=== PATIENT | female | born 1945 | race Caucasian/White ===

== ENCOUNTER 2021-05-03 15:13 | Observation (INO) | payer MEDICARE, SELFPAY ==
--- NOTE | ~2021-05-03 | CT_ITS ---
EXAMINATION:CT diagnostic chest wo con DATE: 05/03/2021 17:23 INDICATION: Shortness of breath and cough. TECHNIQUE: Computed tomography (CT) of the chest was performed without intravenous contrast. Automate d exposure control and iterative reconstruction technique were employed. The dose-length product (DLP ) was 387.33 mGy-cm. COMPARISON: None. FINDINGS: There are patchy groundglass opacities in all lobes with a peripheral predominance. There a re nodules in the lower lobes. There is a mass in right lower lobe with air bronchograms. There are s ubpleural bands in right lower lobe. No pleural effusion. The heart size is normal. There are coronar y artery calcifications. No pericardial effusion. There is a small sliding hiatal hernia. There are g allstones in the gallbladder, which is normal in size. There is severe cervical and thoracic spondylo sis. There is mild chronic anterior wedging of multiple thoracic vertebral bodies. There are changes of posterior fusion procedure in lumbar spine. IMPRESSION: 1. Multifocal lung disease, consistent with pneumonia. Noncontrast low-dose chest CT is recommended i n one month to exclude malignancy. 2. Small sliding hiatal hernia. Reviewed, dictated and finalized at location A. IMPRESSION: 1. Multifocal lung disease, consistent with pneumonia. Noncontrast low-dose lashaun st CT is recommended in one month to exclude malignancy. 2. Small sliding hiatal hernia.
[2021-05-03 15:20] VITALS: BP 135/71; PULSE 98; RESP 24; TEMP 37.6; O2SAT 93
--- NOTE | 2021-05-03 15:49 | ECG_ITS ---
Measurements Intervals [place] Rate: 82 P: 3 MA: 211 QRS: -50 QRSD: 85 T: -17 QT: 358 QTc: 420 Interpretive Statements SINUS RHYTHM WITH FIRST DEGREE AV BLOCK INCOMPLETE RIGHT BUNDLE BRANCH BLOCK LOW QRS VOLTAGE IN PRECORDIAL LEADS CANNOT RULE OUT SEPTAL INFARCT, AGE INDETERMINATE INFERIOR INFARCT, AGE INDETERMINATE BASELINE ARTIFACT- II, III, AVR, AVL, AVF, V1-V6 ABNORMAL ECG Electronically Signed On 05-04-2021 9:51:22 CDT by Kirill Galvan D.O.
[2021-05-03] MEDS: guaiFENesin/DEXTROMETHORPHAN 5 ML UDC 10 ML PO (16:17)
[2021-05-03 16:24] LABS: Base Excess ABG 0.8 mmol/L (0-2); HCO3 ABG 23.8 mmol/L (23-29); Oxygen Content ABG 17.7 %vol (16.0-22.0); Oxyhemoglobin 91.7 % (94-100); PCO2 ABG 33.5 mmHg (35-45); Total Hemoglobin 13.7 g/dL (12.0-18.0); pH ABG 7.47 (7.35-7.45)
[2021-05-03 16:27] LABS: Basophils Absolute Auto 0.02 K/mm3 (0.00-0.10); Basophils Percent Auto 0.2 % (0.0-1.0); Eosinophils Absolute Auto 0.11 K/mm3 (0.02-0.50); Eosinophils Percent Auto 1.1 % (1.0-6.0); Hematocrit 40.4 % (35.0-42.0); Hemoglobin 13.3 g/dL (11.7-13.8); Immature Granulocyte Absolute 0.05 K/mm3 (0.00-0.00); Immature Granulocyte Percent A 0.5 % (0.0-0.0); Lymphocytes Absolute Auto 2.38 K/mm3 (1.10-4.50); Lymphocytes Percent Auto 22.9 % (18.0-42.0); Mean Corpuscular HGB Conc 32.9 g/dL (32.0-36.0); Mean Corpuscular Hemoglobin 31.3 pg (27.0-31.0); Mean Corpuscular Volume 95.1 fL (78.0-102.0); Mean Platelet Volume 10.2 fl (9.2-11.8); Monocytes Absolute Auto 0.56 K/mm3 (0.10-0.90); Monocytes Percent Auto 5.4 % (2.0-11.0); Neutrophils Absolute Auto 7.3 K/mm3 (1.7-7.2); Neutrophils Percent Auto 69.9 % (50.0-70.0); Platelet Count Result 194 K/mm3 (150-420); Red Blood Count 4.25 M/mm3 (4.20-5.40); Red Cell Distribution Width 13.4 % (11.6-14.4); White Blood Count 10.4 K/mm3 (4.8-10.8)
[2021-05-03 16:28] LABS: Device ROOM AIR; Modified Allen's Test Pass; Site Drawn RIGHT RADIAL
[2021-05-03] MEDS: ALBUTEROL SULFATE (*SP) INHALER 2 PUFF INHALATION ×2 (16:29→21:06)
[2021-05-03] MEDS: methylPREDNISolone SOD SUCC 125 MG VIAL IV PUSH ×2 (16:35→21:07)
[2021-05-03 17:05] LABS: SARS-CoV-2 Ag Negative (Negative)
[2021-05-03 17:14] LABS: Alanine Aminotransferase 27 U/L (14-59); Albumin Level 3.7 g/dL (3.4-5.0); Alkaline Phosphatase 70 U/L (46-116); Anion Gap 11 mmol/L (8-16); Aspartate Amino Transferase 25 U/L (15-37); Bilirubin,Total 1.1 mg/dL (0.00-1.00); Blood Urea Nitrogen 14 mg/dL (7-18); Calcium 8.7 mg/dL (8.5-10.1); Carbon Dioxide 26 mmol/L (21-32); Chloride 106 mmol/L (98-108); Estimated CRCL calculation 58 ml/min; Estimated Glomerular Filt Rate > 60; Glucose 90 mg/dL (70-99); Osmolality Calculated 296 mOsm/kg (285-295); Potassium 3.4 mmol/L (3.5-5.1); Sodium 143 mmol/L (136-145); Total Protein 7.7 g/dL (6.4-8.2); Troponin I < 4.0 ng/L (0.00-60.4)
[2021-05-03 17:16] LABS: Lactic Acid Reflex 0.8 mmol/L (0.4-2.0)
[2021-05-03 17:37] LABS: Add Urine Microscopic? NO; Appearance Urine Clear (Clear); Bilirubin Urine Negative (Negative); Blood Urine Negative (Negative); Color Urine Yellow (Yellow); Glucose Urine UA Negative (Negative); Ketones Urine Negative (Negative); Leukocyte Esterase Ur Negative LEU/UL (Negative); Nitrate Urine Negative (Negative); Protein Urine Negative (Negative)
[2021-05-03] MEDS: guaiFENesin 12 HR 600 MG TABCR PO (17:50)
[2021-05-03] MEDS: AZITHROMYCIN 250 MG TABLET 500 MG PO (18:33)
[2021-05-03 18:50] VITALS: BP 142/66; PULSE 82; RESP 20; TEMP 36.2; O2SAT 93
[2021-05-03 19:25] VITALS: PULSE 73; RESP 18; O2SAT 95
--- NOTE | 2021-05-03 19:40 | ED.URI ---
HPI - URI/Sore Throat General Chief Complaint: Upper Respiratory Infection Stated Complaint: bronchitis symptoms Time Seen by Provider: 05/03/21 15:22 Source: patient, family and RN notes reviewed Mode of arrival: ambulatory Limitations: no limitations History of Present Illness MD elicited complaint: cough Onset (ago): week(s) (10) Consistency: constant Severity: mild Pain scale (0-10): 0 Able to tolerate fluids by mouth: Yes Exacerbating factors: nothing Relieving factors: nothing Associated symptoms: shortness of breath Treatments prior to arrival: none Related Data Home Medications Medication Instructions Recorded Confirmed alendronate 70 mg PO WEEKLY 05/03/21 05/03/21 apixaban [Eliquis] 205 mg PO BID 05/03/21 05/03/21 calcium carbonate 200 mg PO DAILY 05/03/21 05/03/21 cholecalciferol (vitamin D3) 25 mcg PO DAILY 05/03/21 05/03/21 [Vitamin D3] citalopram 20 mg PO DAILY 05/03/21 05/03/21 famotidine 20 mg PO DAILY 05/03/21 05/03/21 fenofibrate 160 mg PO DAILY 05/03/21 05/03/21 loratadine 10 mg PO DAILY 05/03/21 05/03/21 montelukast 10 mg PO BID 05/03/21 05/03/21 ropinirole 0.5 mg PO QID 05/03/21 05/03/21 tramadol 50 mg PO PRN PRN 05/03/21 05/03/21 Allergies Allergy/AdvReac Type Severity Reaction Status Date / Time phenol [From Chloraseptic] Allergy Unknown Verified 05/03/21 15:59 sulfamethoxazole Allergy Unknown Verified 05/03/21 15:59 [From Bactrim] trimethoprim [From Bactrim] Allergy Unknown Verified 05/03/21 15:59 Review of Systems Review of Systems: All systems reviewed & are unremarkable except as noted in HPI and below Constitutional: Constitutional: Reports as per HPI and Reports no additional constitutional complaints Eyes: Eyes: Reports as per HPI and Reports no additional eye complaints ENT: Reports system reviewed and no additional complaints, except as documented and Reports as per HPI Cardiovascular: Cardiovascular: Reports as per HPI and Reports no additional cardiovascular complaints Respiratory: Respiratory: Reports as per HPI, Reports no additional respiratory complaints and Reports cough Gastrointestinal: Gastrointestinal: Reports as per HPI and Reports no additional gastrointestinal complaints Genitourinary: Genitourinary: Reports no additional female genitourinary complaints and Reports as per HPI Musculoskeletal: Musculoskeletal: Reports no additional musculoskeletal complaints and Reports as per HPI Integumentary/Breasts: Skin/Breast: Reports system reviewed and no additional complaints, except as docu and Reports as per HPI Neurologic: Reports system reviewed and no additional complaints, except as documented and Reports as per HPI Psychiatric: Psychiatric: Reports no additional psychiatric complaints and Reports as per HPI Endocrine: Endocrine: Reports no additional endocrine complaints and Reports as per HPI Hematologic/Lymphatic: Hematologic/Lymphatic: Reports no additional hematologic/lymphatic complaints and Reports as per HPI Allergic/Immunologic: Allergic/Immunologic: Reports no additional allergic/immunologic complaints and Reports as per HPI [facility] Past Medical History Medical History Pneumonia Surgical History Surgical History DVT (deep venous thrombosis) Exam Const: General: no acute distress and alert Nutritional Appearance: well nourished Orientation/consciousness: patient oriented x3 HENMT: Head: normal to inspection Ears: external ears normal and TM's normal bilaterally General nose exam: Normal external nose present and Normal nares present Mouth: Yes lip normal and Yes moist mucous membranes Teeth and gingiva: dentition normal Eyes: Conjunctivae: conjunctivae normal Pupils: Equal, round and reactive pupils present EOM: EOMs intact bilaterally Neck: Neck: normal visual inspection Chest: Chest palpation & inspection: christine
[2021-05-03 20:00] VITALS: PULSE 96
[2021-05-03 20:01] VITALS: BMI 38.7
--- NOTE | 2021-05-03 20:24 | ADMGEN ---
This patient, Cesia Young, was admitted to 2nd Floor Room 202-1. Patient/family oriented to hospital policies and general routines including ID bracelet, bed and alarms, visiting hours, pain management, procedures, bathroom and other care routines, personal items, smoking policy, room service/diet, and visiting hours. Information on how to activate the Rapid Response Team has been discussed. Patient/Family are encouraged to report perceived risks to care and to ask questions if they do not understand what they are told or what they should do.
[2021-05-03] MEDS: rOPINIRole HCL 0.5 MG TABLET PO (21:06)
[2021-05-03 21:21] VITALS: BP 124/61; PULSE 73; RESP 18; TEMP 36.3; O2SAT 95
[2021-05-03 21:25] LABS: Basophils Absolute Auto 0.03 K/mm3 (0.00-0.10); Basophils Percent Auto 0.3 % (0.0-1.0); Hematocrit 41.5 % (35.0-42.0); Hemoglobin 13.5 g/dL (11.7-13.8); Immature Granulocyte Absolute 0.13 K/mm3 (0.00-0.00); Immature Granulocyte Percent A 1.2 % (0.0-0.0); Lymphocytes Absolute Auto 1.27 K/mm3 (1.10-4.50); Lymphocytes Percent Auto 11.9 % (18.0-42.0); Mean Corpuscular HGB Conc 32.5 g/dL (32.0-36.0); Mean Corpuscular Hemoglobin 30.9 pg (27.0-31.0); Mean Platelet Volume 10.4 fl (9.2-11.8); Monocytes Absolute Auto 0.11 K/mm3 (0.10-0.90); Neutrophils Absolute Auto 9.2 K/mm3 (1.7-7.2); Neutrophils Percent Auto 85.6 % (50.0-70.0); Platelet Count Result 207 K/mm3 (150-420); Red Blood Count 4.37 M/mm3 (4.20-5.40); Red Cell Distribution Width 13.2 % (11.6-14.4); White Blood Count 10.7 K/mm3 (4.8-10.8)
[2021-05-03 21:37] LABS: Alanine Aminotransferase 29 U/L (14-59); Albumin Level 3.7 g/dL (3.4-5.0); Alkaline Phosphatase 72 U/L (46-116); Anion Gap 15 mmol/L (8-16); Aspartate Amino Transferase 26 U/L (15-37); Bilirubin,Total 1.1 mg/dL (0.00-1.00); Blood Urea Nitrogen 15 mg/dL (7-18); Calcium 8.5 mg/dL (8.5-10.1); Carbon Dioxide 23 mmol/L (21-32); Chloride 103 mmol/L (98-108); Estimated CRCL calculation 54 ml/min; Estimated Glomerular Filt Rate > 60; Glucose 189 mg/dL (70-99); Osmolality Calculated 297 mOsm/kg (285-295); Potassium 3.7 mmol/L (3.5-5.1); Sodium 141 mmol/L (136-145)
[2021-05-04] VITALS: BP 112/50; PULSE 71; RESP 18; TEMP 36.4; O2SAT 93
--- NOTE | 2021-05-04 00:07 | PC.NURSE ---
Patient alert and oriented x4. Independent in room. Had dry, barking cough. BL breath sounds diminished. reports cough present x10 weeks with several courses of oral abts from primary doctor. pain rated at 0. 93% on room air.
[2021-05-04 04:00] VITALS: PULSE 96
--- NOTE | 2021-05-04 04:14 | PC.NURSE ---
Patient had episode of tachycardia with afib during coughing spell. Continues to have dry. hacking cough. Reports she has an appointment with Dr. Benitez Cookee in [place] at the end of the month. She has been experiencing periods of SOB prior to bronchitis 10 weeks ago
[2021-05-04] MEDS: ALBUTEROL SULFATE (*SP) INHALER 2 PUFF INHALATION ×2 (05:47→09:29)
[2021-05-04] MEDS: methylPREDNISolone SOD SUCC 125 MG VIAL IV PUSH (05:47)
[2021-05-04 08:00] VITALS: BP 123/71; PULSE 80; PULSE 88; RESP 22; TEMP 35.8; O2SAT 95
[2021-05-04] MEDS: FENOFIBRATE NANOCRYSTALLIZED 145 MG TABLET PO (09:28)
[2021-05-04] MEDS: rOPINIRole HCL 0.5 MG TABLET PO (09:30)
[2021-05-04] MEDS: guaiFENesin 12 HR 600 MG TABCR PO (09:30)
[2021-05-04] MEDS: CALCIUM CARBONATE (TUMS) 500 MG (200 MG ELEMENTAL) PO (09:31)
[2021-05-04] MEDS: APIXABAN 2.5 MG TABLET PO (09:31)
[2021-05-04] MEDS: FAMOTIDINE 20 MG TABLET PO (09:31)
[2021-05-04 12:00] VITALS: PULSE 86
--- NOTE | 2021-05-04 12:35 | PM.SD2 ---
Same Day Admit/Disch: HPI History of Present Illness Chief complaint: bronchitis symptoms Narrative: Cesia Young is a 76 year old femaleWho was admitted under observation for bronchitis symptoms. Patient says that she has had a cough for the past 10 (ten) weeks. Over the last 10 weeks she has been treated for her cough with Augmentin on 2 occasions with prednisone doxycycline and Bactrim and lastly she was put on singular. At some point after those treatments she ended up with a UTI. A friend of hers told her that her voice was getting lower in tone and that she looked sick prompting her to come to the ER. Yesterday she started to gag and states this is what it felt like when she had GERD. This morning she does not complain of any shortness of breath no coughing no fevers no chills no nausea no vomiting. PMHx includes: restless leg syndrome, bronchitis, DVT, Seasonal allergies, Anxiety, Depression, arthritis, osteoporosis, and possibly childhood asthma. Pt stated she does not have asthma but once as a child she was treated for an asthma attack. Denies: fever, chills, nausea, vomiting, abdominal pain, urinary symptoms, changes in bowel habits, recent pain or loss of weight, no changes in medications or other doses. [facility] Past Medical History Medical History (Updated 05/04/21 @ 14:05 by ASIM Bravo) Anxiety Arthritis Asthma Bronchitis Depression Osteoporosis Restless leg syndrome Seasonal allergies Surgical History Surgical History (Updated 05/04/21 @ 13:23 by ASIM Bravo) DVT (deep venous thrombosis) History of appendectomy History of lumbar fusion Family History Family History (Updated 05/04/21 @ 13:24 by ASIM Bravo) Other Family history non-contributory Social History Social History Smoking status: Never smoker Second hand tobacco smoke exposure: Yes Alcohol intake: never Substance use: never Substance use type: does not use Gender identity (if verbalized by the patient): Female Spiritual care concerns: No Same Day Admit/Disch: Med Pre-admit Medications Home Medications Medication Instructions Recorded Confirmed Type alendronate 70 mg PO WEEKLY 05/03/21 05/03/21 History apixaban [Eliquis] 205 mg PO BID 05/03/21 05/03/21 History calcium carbonate 200 mg PO DAILY 05/03/21 05/03/21 History cholecalciferol (vitamin D3) 25 mcg PO DAILY 05/03/21 05/03/21 History [Vitamin D3] citalopram 20 mg PO DAILY 05/03/21 05/03/21 History famotidine 20 mg PO DAILY 05/03/21 05/03/21 History fenofibrate 160 mg PO DAILY 05/03/21 05/03/21 History loratadine 10 mg PO DAILY 05/03/21 05/03/21 History montelukast 10 mg PO BID 05/03/21 05/03/21 History ropinirole 0.5 mg PO QID 05/03/21 05/03/21 History tramadol 50 mg PO PRN PRN 05/03/21 05/03/21 History albuterol sulfate 1 inh INHALATION QID PRN #6.7 g 05/04/21 Rx cefdinir 300 mg PO Q12H #7 cap 05/04/21 Rx methylprednisolone [Medrol ([place])] See Rx Instructions .ROUTE 05/04/21 Rx .COMPLEX #21 ea Exam Const: General: cooperative, comfortable, no acute distress, alert, awake and Physically active Nutritional Appearance: obese morbidly obese HENMT: Head: normal to inspection, normocephalic and atraumatic Ears: hearing grossly normal bilaterally Neck: Neck: normal visual inspection and no JVD Resp: Effort & Inspection: normal respiratory effort Auscultation: clear to auscultation bilaterally Cardio: Rate: regular rate Heart sounds: S1 normal heart sound present and S2 normal heart sound present GI: GI Palp: Yes Soft to palpation and No Tenderness to palpation present (GI) Auscultation: normal bowel sounds Skin: General skin exam: normal color and dry skin Neuro: General: oriented to person, oriented to place and oriented to time Cranial nerves: Yes CN's II-XII intact bilaterally (grossly intact) Cognition (Neuro): normal cognition Speech: normal speech Mot
--- NOTE | 2021-05-04 14:35 | PC.NURSE ---
Discharge to home via wheel chair, discharge instructions reviewed, no questions, new meds to yoana moran, personal items returned to patient
== END 2021-05-04 14:35 | disposition home or self-care (01) ==
LOC: CHSED 15:26 → CHS2ND 19:54
PROVIDERS: Admitting Provider Emergency Medicine; Emergency Provider Emergency Medicine; PCP Family Medicine; Visit Provider Emergency Medicine
DX: J40 Bronchitis, not specified as acute or chronic (principal); K21.9 Gastro-esophageal reflux disease without esophagitis; M81.0 Age-related osteoporosis without current pathological fracture; M19.90 Unspecified osteoarthritis, unspecified site; F32.9 Major depressive disorder, single episode, unspecified; G25.81 Restless legs syndrome; F41.9 Anxiety disorder, unspecified; Z20.822 Contact with and (suspected) exposure to COVID-19; Z79.01 Long term (current) use of anticoagulants; Z86.718 Personal history of other venous thrombosis and embolism; Z98.1 Arthrodesis status
CPT/HCPCS: 36415; 36600; 71250; 80053; 81003; 82805; 83605; 84484; 85025; 87040; 87426; 93005; 96365; 96375; 96376; 99285; A9270; C9803; G0378; J0696; J2930

== ENCOUNTER 2021-07-28 11:15 | Emergency (ER) | payer MEDICARE, SELFPAY ==
--- NOTE | ~2021-07-28 | XR_ITS ---
EXAMINATION: XR knee RT 3V DATE: 07/28/2021 12:02 INDICATION: Right knee pain TECHNIQUE: Three views of the right knee were obtained. COMPARISON: 03/07/2016 FINDINGS: Internal stabilization hardware is present in the proximal tibia. There is no acute fractur e. Moderate tricompartmental osteophyte is noted. There is a moderate-sized knee joint effusion. Soft tissues are unremarkable. IMPRESSION: 1. Moderate size joint effusion and osteoarthritis without acute osseous findings. Reviewed, dictated and finalized at location B. IMPRESSION: 1. Moderate size joint effusion and osteoarthritis without acute osseous findin gs.
[2021-07-28 11:25] VITALS: BP 136/86; PULSE 86; RESP 20; TEMP 36.7; O2SAT 97
--- NOTE | 2021-07-28 11:42 | ED.LOWEXIN ---
HPI - Extremity Injury (Lower) General Chief Complaint: Extremity Injury, Lower Stated Complaint: fell on knee Time Seen by Provider: 07/28/21 11:28 Source: patient Mode of arrival: ambulatory Limitations: no limitations History of Present Illness HPI Narrative: 76-year-old female with a history of RLS, arthritis, bone graft for right tibial fracture was walking down a slope when she lost balance and fell on her right knee. No head injury. The patient presents with right knee pain at a 3 cm superficial laceration of the right knee. No other injuries noted. Injury: Right: knee Type of Injury: laceration ( 3 cm laceration right knee) Place: home Severity: mild Severity scale (1-10): 4 Relieving factors: nothing Exacerbating factors: nothing Context: fall Associated symptoms: ambulatory Other symptoms: none Related Data Home Medications Medication Instructions Recorded Confirmed Eliquis 205 mg PO BID 05/03/21 05/03/21 alendronate 70 mg PO WEEKLY 05/03/21 05/03/21 calcium carbonate 200 mg PO DAILY 05/03/21 05/03/21 cholecalciferol (vitamin D3) 25 mcg PO DAILY 05/03/21 05/03/21 [Vitamin D3] citalopram 20 mg PO DAILY 05/03/21 05/03/21 famotidine 20 mg PO DAILY 05/03/21 05/03/21 fenofibrate 160 mg PO DAILY 05/03/21 05/03/21 loratadine 10 mg PO DAILY 05/03/21 05/03/21 montelukast 10 mg PO BID 05/03/21 05/03/21 ropinirole 0.5 mg PO QID 05/03/21 05/03/21 Allergies Allergy/AdvReac Type Severity Reaction Status Date / Time phenol [From Chloraseptic] Allergy Unknown Verified 05/03/21 15:59 sulfamethoxazole Allergy Unknown Verified 05/03/21 15:59 [From Bactrim] trimethoprim [From Bactrim] Allergy Unknown Verified 05/03/21 15:59 Review of Systems Review of Systems: All systems reviewed & are unremarkable except as noted in HPI and below Musculoskeletal: Musculoskeletal: Reports as per HPI Integumentary/Breasts: Comments: 3 cm laceration of the right knee Psychiatric: Psychiatric: Reports depression PMFSH Past Medical History Medical History (Updated 07/28/21 @ 12:31 by Bakari Cochran MD) Anxiety Arthritis Asthma Bronchitis Depression Factor 5 Leiden mutation, heterozygous Osteoporosis Restless leg syndrome Seasonal allergies Surgical History Surgical History DVT (deep venous thrombosis) History of appendectomy History of lumbar fusion Family History Family History (Updated 05/04/21 @ 13:24 by SAGAR BravoN-C) Other Family history non-contributory Social History Social History Smoking status: Never smoker Second hand tobacco smoke exposure: Yes Alcohol intake: never Substance use: never Substance use type: does not use Gender identity (if verbalized by the patient): Female Spiritual care concerns: No Exam Const: General: no acute distress HENMT: Head: normal to inspection Mouth: Yes lip normal and Yes dry mucous membranes Eyes: General: appearance normal, both eyes and all related structures Conjunctivae: conjunctivae normal Pupils: Equal, round and reactive pupils present EOM: EOMs intact bilaterally Neck: Neck: normal visual inspection Chest: Chest palpation & inspection: normal inspection of the chest Resp: Effort & Inspection: normal respiratory effort Auscultation: clear to auscultation bilaterally Cardio: Rate: regular rate Rhythm: regular rhythm GI: GI Palp: Yes Soft to palpation and Yes Tenderness to palpation present (GI) ( nontender without any guarding or rigidity) : General: Yes no CVA tenderness Skin: Other: 3 cm laceration all over the right knee joint. Laceration involves full thickness skin. Neuro: General: patient oriented x3, moves all extremities and no focal motor deficits Extrem: General: edema bilateral Other: Right knee did not show any swelling. No restriction of movements. Negative stress test
[2021-07-28] MEDS: traMADol HCL (*CRX) 50 MG TABLET PO (12:13)
[2021-07-28] MEDS: TETANUS,DIPHTHERIA,AC PERTUSSIS ADULT 0.5 ML (ADACEL) (12:14)
[2021-07-28 13:03] VITALS: BP 136/86; PULSE 82; RESP 18; TEMP 37.1; O2SAT 97
== END 2021-07-28 13:04 | disposition home or self-care (01) ==
PROVIDERS: Emergency Provider Internal Medicine Critical Care Medicine; PCP Family Medicine
DX: M25.561 Pain in right knee (principal); S81.011A Laceration without foreign body, right knee, initial encounter; W19.XXXA Unspecified fall, initial encounter
CPT/HCPCS: 12001; 73562; 90471; 90715; 99282; 99283; A9270

== ENCOUNTER 2022-12-08 13:51 | Observation (INO) | payer OTHER, SELFPAY ==
--- NOTE | ~2022-12-08 | CT_ITS ---
EXAMINATION: CT brain wo con DATE: 12/08/2022 14:58 INDICATION: Status post fall today with left parietal hematoma. Headache . TECHNIQUE: Computed tomography (CT) of the head was performed without intravenous contrast. The mA wa s adjusted according to patient size. Iterative reconstruction technique was employed. The dose-lengt h product was 605.33 mGy-cm. COMPARISON: 03/08/2016. FINDINGS: No acute intracranial hemorrhage or extra-axial fluid collection. No hydrocephalus, mass, or herniation. No acute ischemic infarct. Unremarkable dural venous sinus attenuation. No acute osseous abnormality. Mild left scalp swelling near the vertex. Small right maxillary sinus fluid level, left maxillary sinus retention cyst or polyp, small volume b ilateral mastoid fluid, the remaining aerated spaces are clear. Mild atrophy and chronic white matter change. Atherosclerotic intracranial calcification. Distal vert ebral artery and basilar artery ectasia. Left lens replacement. IMPRESSION: No acute intracranial process. Small right maxillary fluid level, may represent acute sinusitis or mu cosal hemorrhage in the setting of trauma. Reviewed, dictated and finalized at location K. IMPRESSION: No acute intracranial process. Small right maxillary fluid level, may represent acute sinusitis or mucosal hemorrhage in the setting of trauma.
--- NOTE | ~2022-12-08 | XR_ITS ---
EXAMINATION: XR knee LT 3V DATE: 12/08/2022 15:04 INDICATION: Left knee pain. TECHNIQUE: 3 views of left knee were obtained. COMPARISON: Left knee radiograph 03/07/2016 FINDINGS: Bone alignment is normal. No fracture. There is moderate osteoarthritis of medial and manzo lofemoral compartments and mild osteoarthritis of lateral compartment. There is a small knee joint ef fusion. IMPRESSION: 1. Moderate left knee osteoarthritis. 2. Small left knee joint effusion. Reviewed, dictated and finalized at location A.
--- NOTE | ~2022-12-08 | CT_ITS ---
EXAMINATION: CT cervical spine wo con DATE: 12/08/2022 14:59 INDICATION: Status post fall today; left sided hematoma. TECHNIQUE: Computed tomography (CT) of the cervical spine was performed with intravenous contrast. Au tomated exposure control and iterative reconstruction technique were employed. The dose-length produc t was 396.11 mGy-cm. COMPARISON: None. FINDINGS: Vertebral Body Alignment: Intact. . Craniocervical and atlantoaxial alignment: Severe degenerative change at the atlantoaxial joint and C 1-2. Pannus formation. Large subcortical cysts in the dens. Alignment intact. Osseous structures/fracture: No evidence of a lytic or blastic process in the visualized spine. No e vidence of acute fracture. C4-5 vertebral body and facet fusion. Cervical soft tissues: The paraspinal soft tissues planes are maintained. Small bilateral mastoid eff usions. Degenerative changes: Multilevel severe degenerative disc disease. Multilevel severe facet arthropath y. Multilevel severe neural foraminal narrowing. No severe central canal narrowing. IMPRESSION: No acute fracture or traumatic malalignment in the cervical spine. Reviewed, dictated and finalized at location K.
--- NOTE | ~2022-12-08 | XR_ITS ---
EXAMINATION: XR elbow RT min 3V DATE: 12/08/2022 15:02 INDICATION: Hematoma at the posterior right elbow post fall TECHNIQUE: Anteroposterior, two oblique and lateral views of the right elbow were obtained. COMPARISON: None. FINDINGS: Alignment is normal. No fracture or joint effusion. Joint spaces are normal. Tiny enthesophyte at the tip of the olecranon. Dense soft tissue tissue swelling dorsal to the olecranon consistent with prov ided history of a posttraumatic hematoma. IMPRESSION: 1. Right elbow joint effusion or acute osseous abnormality. Reviewed, dictated and finalized at location B.
--- NOTE | ~2022-12-08 | XR_ITS ---
EXAMINATION: XR pelvis 1-2V DATE: 12/08/2022 15:01 INDICATION: Pelvis injury. Fall. TECHNIQUE: An anteroposterior view of the pelvis was obtained. COMPARISON: None. FINDINGS: Bone alignment is normal. No fracture. There are changes of posterior fusion procedure in l umbosacral spine. There is mild osteoarthritis of the hips. Osteitis pubis is noted. IMPRESSION: 1. Mild osteoarthritis of the hips. Reviewed, dictated and finalized at location A.
[2022-12-08 13:51] VITALS: BP 133/81; BP 133/82; PULSE 80; PULSE 82; RESP 16; TEMP 36.2; O2SAT 96; O2SAT 98
--- NOTE | 2022-12-08 14:26 | ED.FALL ---
HPI - Fall General Chief Complaint: Fall Stated Complaint: fall Time Seen by Provider: 12/08/22 14:15 Source: patient Mode of arrival: EMS Limitations: no limitations History of Present Illness HPI Narrative: 37-year-old female with history of RLS, anxiety /depression status, factor 5 laden deficiency, DVT, osteoporosis fell while she was trying to place a wreath on her door. no loss of consciousness. She presents with -- head injury with a hematoma over the left parietal region. -- Left knee pain with decreased range of motion. -- Right elbow pain with a hematoma. No ENT bleeding. MD complaint: fall Onset (ago): hour(s) ( 1 hour ago.) Fall from: standing Fall witnessed: no Place fall occurred: home Loss of consciousness: none Symptoms prior to fall: none Context: tripped/slipped Location of injury: head and other ( Left knee and right elbow) Location of injury - extremities: Left: knee and Right: elbow Related Data Home Medications Medication Instructions Recorded Confirmed alendronate 70 mg tablet 70 mg PO WEEKLY 05/03/21 12/08/22 apixaban 2.5 mg tablet (Eliquis) 5 mg PO BID 05/03/21 12/08/22 calcium carbonate 200 mg calcium 200 mg PO DAILY 05/03/21 12/08/22 (500 mg) chewable tablet cholecalciferol (vitamin D3) 25 25 mcg PO DAILY 05/03/21 12/08/22 mcg (1,000 unit) tablet (Vitamin D3) citalopram 20 mg tablet 20 mg PO DAILY 05/03/21 12/08/22 famotidine 20 mg tablet 20 mg PO DAILY 05/03/21 12/08/22 fenofibrate 160 mg tablet 160 mg PO DAILY 05/03/21 12/08/22 loratadine 10 mg tablet 10 mg PO DAILY 05/03/21 12/08/22 montelukast 10 mg tablet 10 mg PO BID 05/03/21 12/08/22 ropinirole 0.5 mg tablet 0.5 mg PO QID 05/03/21 12/08/22 Allergies Allergy/AdvReac Type Severity Reaction Status Date / Time phenol [From Chloraseptic] Allergy Unknown Verified 12/08/22 14:02 sulfamethoxazole Allergy Unknown Verified 12/08/22 14:02 [From Bactrim] trimethoprim [From Bactrim] Allergy Unknown Verified 12/08/22 14:02 [facility] Past Medical History Medical History (Updated 12/08/22 @ 17:06 by Bakari Cochran MD) Anxiety Arthritis Asthma Bronchitis Depression Factor 5 Leiden mutation, heterozygous Osteoporosis Restless leg syndrome Seasonal allergies Surgical History Surgical History DVT (deep venous thrombosis) History of appendectomy History of lumbar fusion Family History Family History (Updated 05/04/21 @ 13:24 by Serge Smith [employer]-C) Other Family history non-contributory Social History Social History Smoking status: Never smoker Second hand tobacco smoke exposure: Yes Alcohol intake: never Substance use: never Substance use type: does not use Gender identity (if verbalized by the patient): Female Spiritual care concerns: No Course Course Emergency Course: accidental fall head injury - patient is on Eliquis for factor 5 laden deficiency left knee contusion right elbow contusion Vital Signs Vital signs: Vital Signs Temperature 36.2 C L 12/08/22 13:51 Pulse Rate 80 12/08/22 13:51 Respiratory Rate 16 12/08/22 13:51 Blood Pressure 133/82 12/08/22 13:51 Pulse Oximetry 96 12/08/22 13:51 Oxygen Delivery Room Air 12/08/22 13:51 Temperature 36.2 C L 12/08/22 13:51 Pulse Rate 82 12/08/22 13:51 Respiratory Rate 16 12/08/22 13:51 Blood Pressure 133/81 12/08/22 13:51 Pulse Oximetry 98 12/08/22 13:51 Oxygen Delivery Room Air 12/08/22 13:51 MDM - Fall MDM Narrative Medical decision making narrative: accidental fall head injury with left parietal hematoma left knee sprain right elbow sprain/ hematoma will admit this patient in view of her recurrent fall risk and the fact that she lives by herself. Will request for OT/PT. Differential Diagnosis Differential diagnosis: Likely concussion without loss of
[2022-12-08] MEDS: HYDROmorphone HCL INJ (*CRX) 2 MG/ML VIAL 0.5 MG IM (14:41)
[2022-12-08] MEDS: ONDANSETRON HCL ODT 4 MG TABLET PO (14:41)
--- NOTE | 2022-12-08 16:07 | PC.NURSE ---
ASSISTED PT WITH AMBULATION, PT NORMALLY AMBULATES WITH CANE. +PMS POST ELIZABETH APPLICATION. PT WAS ABLE TO AMBULATE FROM STRETCHER TO CHAIR WITH RN AND CANE, HOWEVER REPORTS EXTREME PAIN. PT HAD SLOW STEADY GAIT. PT LIVES ALONE, REPORTS SHE DOES NOT FEEL SAFE GOING HOME TONIGHT, FEELS IF WHEN THE PAIN MEDICATION WEARS OFF SHE WILL NOT BE ABLE TO GET UP AND AMBULATE ON HER OWN. ERP WAS NOTIFIED.
[2022-12-08 16:34] LABS: Basophils Absolute Auto 0.04 K/mm3 (0.00-0.10); Basophils Percent Auto 0.5 % (0.0-1.0); Eosinophils Absolute Auto 0.33 K/mm3 (0.02-0.50); Eosinophils Percent Auto 3.9 % (1.0-6.0); Hematocrit 43.4 % (35.0-42.0); Hemoglobin 13.6 g/dL (11.7-13.8); Immature Granulocyte Absolute 0.04 K/mm3 (0.00-0.00); Immature Granulocyte Percent A 0.5 % (0.0-0.0); Lymphocytes Absolute Auto 2.43 K/mm3 (1.10-4.50); Lymphocytes Percent Auto 28.8 % (18.0-42.0); Mean Corpuscular HGB Conc 31.3 g/dL (32.0-36.0); Mean Corpuscular Hemoglobin 29.3 pg (27.0-31.0); Mean Corpuscular Volume 93.5 fL (78.0-102.0); Mean Platelet Volume 10.6 fl (9.2-11.8); Monocytes Absolute Auto 0.44 K/mm3 (0.10-0.90); Monocytes Percent Auto 5.2 % (2.0-11.0); Neutrophils Absolute Auto 5.2 K/mm3 (1.7-7.2); Neutrophils Percent Auto 61.1 % (50.0-70.0); Platelet Count Result 209 K/mm3 (150-420); Red Blood Count 4.64 M/mm3 (4.20-5.40); Red Cell Distribution Width 13.3 % (11.6-14.4); White Blood Count 8.4 K/mm3 (4.8-10.8)
[2022-12-08 17:03] LABS: Alanine Aminotransferase 37 U/L (14-59); Albumin Level 3.8 g/dL (3.4-5.0); Alkaline Phosphatase 131 U/L (46-116); Anion Gap 9 mmol/L (8-16); Aspartate Amino Transferase 35 U/L (15-37); Bilirubin,Total 0.6 mg/dL (0.00-1.00); Blood Urea Nitrogen 17 mg/dL (7-18); Calcium 9.2 mg/dL (8.5-10.1); Carbon Dioxide 31 mmol/L (21-32); Chloride 104 mmol/L (98-108); Estimated CRCL calculation 66 ml/min; Estimated Glomerular Filt Rate > 60; Glucose 97 mg/dL (70-99); Osmolality Calculated 299 mOsm/kg (285-295); Potassium 4.1 mmol/L (3.5-5.1); Sodium 144 mmol/L (136-145); Troponin I 4.4 ng/L (0.00-60.4)
[2022-12-08 17:25] VITALS: BP 102/80; PULSE 67; RESP 18; TEMP 36.7; O2SAT 100
[2022-12-08 18:11] VITALS: BP 138/66; PULSE 74; RESP 15; TEMP 36.4; O2SAT 95
--- NOTE | 2022-12-08 18:12 | ADMGEN ---
This patient, Cesia Young, was admitted to 2nd Floor Room 203-2. Patient/family oriented to hospital policies and general routines including ID bracelet, bed and alarms, visiting hours, pain management, procedures, bathroom and other care routines, personal items, smoking policy, room service/diet, and visiting hours. Information on how to activate the Rapid Response Team has been discussed. Patient/Family are encouraged to report perceived risks to care and to ask questions if they do not understand what they are told or what they should do.
[2022-12-08 18:41] VITALS: BMI 36.5
[2022-12-08] MEDS: HYDROcodone/acetaminophen (*CRX) 5-325 MG TABLET 1 TAB PO (19:25)
[2022-12-08] MEDS: APIXABAN 2.5 MG TABLET 5 MG PO (19:25)
[2022-12-08] MEDS: ALBUTEROL SULFATE (*SP) INHALER 1 PUFF INHALATION (19:26)
[2022-12-08] MEDS: rOPINIRole HCL 0.5 MG TABLET PO (20:37)
--- NOTE | 2022-12-08 20:50 | PC.NURSE ---
Patient awake talking on the phone when nurse came in. Alert and oriented x3. Able to verbalize needs and answer questions appropriately. Able to take medication without difficulty. Hematoma observed to top of head. Purple in color. Knee and elbow wrapped. IV clean, dry, intact. SR up x2 and belongings and call banks within reach.
--- NOTE | 2022-12-08 22:11 | PC.NURSE ---
Patient resting quietly. No new c/o offered. Call light within reach.
--- NOTE | 2022-12-08 23:03 | PC.NURSE ---
Pt assisted to BSC c walker at this time, Pt having difficulty moving herself out of bed and difficulty bearing wt. on Lt knee/leg at this time s severe pain. Lt knee is wrapped and assisted pt to commode c toe touch weight bearing. Pt urinated and back to bed c assist. Noted Rt elbow bruising and slight swelling, latesha wrap applied to Rt elbow.
[2022-12-08 23:51] VITALS: BP 123/71; PULSE 86; RESP 20; TEMP 36.6; O2SAT 97
--- NOTE | 2022-12-09 00:24 | PC.NURSE ---
Pt resting in bed, eyes closed, no distress noted, call banks at pt side.
--- NOTE | 2022-12-09 03:04 | PC.NURSE ---
Pt sleeping in position of comfort c knee elevated on pillow. Pt awakens easily to voice, then back to sleep. Call banks at pt side.
[2022-12-09] MEDS: HYDROcodone/acetaminophen (*CRX) 5-325 MG TABLET 1 TAB PO (04:22)
--- NOTE | 2022-12-09 04:37 | PC.NURSE ---
Pt awake and in severe cramping pain c her Lt knee, pt assisted c gait belt and use [place] [facility] [place] able to tolerate slight wt bearing to her leg but requests pain pill. Garber given as per order, pt assisted back to bed and pillow placed under knee for comfort. Call banks at pt side.
[2022-12-09 08:00] VITALS: BP 124/78; PULSE 81; RESP 16; TEMP 36.6; O2SAT 93
--- NOTE | 2022-12-09 08:32 | PM.SD2 ---
Same Day Admit/Disch: HPI History of Present Illness Chief complaint: FALL WEAKNESS Narrative: Cesia Young is a 77 year old female Chief Complaint: Fall Stated Complaint: fall Time Seen by Provider: 12/08/22 14:15 Source: patient Mode of arrival: EMS Limitations: no limitations History of Present Illness HPI Narrative: ?37-year-old female with history of RLS, anxiety /depression status,? factor 5 laden deficiency, DVT, osteoporosis fell while she was trying to place a wreath? on her door.? no loss of consciousness.? She presents with -- head injury with a hematoma over the left parietal region. --? Left knee pain with decreased range of motion. --? Right elbow pain with a hematoma. ? No ENT bleeding. [facility] Past Medical History Medical History Anxiety Arthritis Asthma Bronchitis Depression Factor 5 Leiden mutation, heterozygous Osteoporosis Restless leg syndrome Seasonal allergies Surgical History Surgical History DVT (deep venous thrombosis) History of appendectomy History of lumbar fusion Family History Family History Other Family history non-contributory Social History Social History Smoking status: Never smoker Second hand tobacco smoke exposure: Yes Alcohol intake: former Substance use: never Substance use type: does not use Lack of Transportation: No Lack of Food: Never True Current Housing: I Have Housing Concerned About Future Housing: No Difficulty Paying Gas/Electric Bills: No Difficulty Paying for Meds: No Currently Unemployed: No Education: Associate Degree Difficulty w/ Childcare or Family Care: No Gender identity (if verbalized by the patient): Female Spiritual care concerns: No Same Day Admit/Disch: Med Pre-admit Medications Home Medications Medication Instructions Recorded Confirmed Type alendronate 70 mg tablet 70 mg PO WEEKLY 05/03/21 12/08/22 History apixaban 2.5 mg tablet (Eliquis) 5 mg PO BID 05/03/21 12/08/22 History calcium carbonate 200 mg calcium 200 mg PO DAILY 05/03/21 12/08/22 History (500 mg) chewable tablet cholecalciferol (vitamin D3) 25 25 mcg PO DAILY 05/03/21 12/08/22 History mcg (1,000 unit) tablet (Vitamin D3) citalopram 20 mg tablet 20 mg PO DAILY 05/03/21 12/08/22 History famotidine 20 mg tablet 20 mg PO DAILY 05/03/21 12/08/22 History fenofibrate 160 mg tablet 160 mg PO DAILY 05/03/21 12/08/22 History loratadine 10 mg tablet 10 mg PO DAILY 05/03/21 12/08/22 History montelukast 10 mg tablet 10 mg PO BID 05/03/21 12/08/22 History ropinirole 0.5 mg tablet 0.5 mg PO QID 05/03/21 12/08/22 History albuterol sulfate 90 mcg/actuation 1 inh inhalation QID PRN shortness 05/04/21 12/08/22 Rx aerosol inhaler of breath or wheezing #6.7 grams tramadol 50 mg tablet 50 mg PO Q6H PRN Pain Rated 4-6 12/09/22 Rx #15 tabs Exam Narrative: GENERAL:Well-appearing, well-nourished, and in no acute distress. HEAD:Normocephalic, atraumatic. EYES: PERRLA and EOMI. ENT: Nares clear, no rhinorrhea or epistaxis. Mucous membranes moist. CHEST: Clear to auscultation. No respiratory distress. HEART: Regular rate and rhythm Normal peripheral pulses. ABDOMEN: Soft, nontender, nondistended, normal active bowel sounds. EXTREMITIES: Normal range of motion. 1+ edema. Right arm/elbow bruising noted with a hematoma, left knee swollen w latesha wrap, Head small goose egg noted bruising SKIN: Warm, dry, no rash. NEURO: No focal deficits. Alert and oriented x3. DS: Data Data Completed and Pending Labs on day of discharge: Labs from last 24 hours 12/08/22 12/08/22 16:14 16:14 WBC 8.4 RBC 4.64 Hgb 13.6 Hct 43.4 H MCV 93.5 MCH 29.3 MCHC 31.3 L RDW 13.3 Plt Count 209 MPV 10.6 Immature Gr
[2022-12-09] MEDS: CALCIUM CARBONATE (TUMS) 500 MG (200 MG ELEMENTAL) PO (08:54)
[2022-12-09] MEDS: CHOLECALCIFEROL 1,000 UNITS TABLET 1000 UNITS PO (08:54)
[2022-12-09] MEDS: rOPINIRole HCL 0.5 MG TABLET PO (08:55)
[2022-12-09] MEDS: FAMOTIDINE 20 MG TABLET PO (08:55)
[2022-12-09] MEDS: APIXABAN 2.5 MG TABLET 5 MG PO (08:55)
[2022-12-09] MEDS: FENOFIBRATE NANOCRYSTALLIZED 145 MG TABLET PO (08:55)
[2022-12-09] MEDS: CITALOPRAM HYDROBROMIDE 20 MG TABLET PO (08:55)
[2022-12-09] MEDS: LORATADINE 10 MG TABLET PO (08:56)
[2022-12-09] MEDS: MONTELUKAST SODIUM 10 MG TABLET PO (08:56)
--- NOTE | 2022-12-09 15:23 | PC.NURSE ---
Pt given discharge instructions, medication instruction and fall prevention instruction as well as MD follow up appointment. Pt taken to family car via WC by RN.
--- NOTE | 2022-12-13 11:43 | PC.NURSE ---
Pt states she received and understood her discharge instructions. State my care was excellent .
== END 2022-12-09 11:40 | disposition home health service (06) ==
LOC: CHSED 17:08 → CHS2ND 17:19
PROVIDERS: Admitting Provider Internal Medicine; Emergency Provider Internal Medicine Critical Care Medicine; PCP Internal Medicine; Visit Provider Internal Medicine
DX: S09.90XA Unspecified injury of head, initial encounter (principal); S53.401A Unspecified sprain of right elbow, initial encounter; S83.92XA Sprain of unspecified site of left knee, initial encounter; D68.51 Activated protein C resistance; J45.909 Unspecified asthma, uncomplicated; M81.0 Age-related osteoporosis without current pathological fracture; G25.81 Restless legs syndrome; F41.9 Anxiety disorder, unspecified; W19.XXXA Unspecified fall, initial encounter; Z79.01 Long term (current) use of anticoagulants; Z86.718 Personal history of other venous thrombosis and embolism; Z98.1 Arthrodesis status
CPT/HCPCS: 36415; 70450; 72125; 72170; 73080; 73562; 80053; 84484; 85025; 96372; 97161; 99285; A9270; G0378; J1170

== ENCOUNTER 2023-01-23 10:45 | Emergency (ER) | payer OTHER, SELFPAY ==
--- NOTE | ~2023-01-23 | CT_ITS ---
EXAMINATION: CT pelvis wo con DATE: 01/23/2023 11:32 INDICATION: . Is a left hip and sciatic pain. TECHNIQUE: High resolution computed tomography (CT) of the pelvis was performed without intravenous c ontrast. Additional sagittal and coronal reconstructions were performed. Automated exposure control a nd iterative reconstruction technique were employed. The dose-length product was 841.17 mGy-cm. COMPARISON: Pelvis radiograph dated 12/08/2022 FINDINGS: Lumbar spondylosis with limited posterior spinal fusion in the lower lumbar spine. See separate lumba r spine CT report for further detail. Normal bone alignment in the pelvis. No fracture or suspected a vascular necrosis. Bone island at the left femoral head. Mild bilateral hip osteoarthritis and modera te left and moderate to severe right sacroiliac osteoarthritis. Likely bone graft harvest site at the left posterior iliac spine. Moderate osteitis pubis. Enthesopathic calcification at the bilateral is chial tuberosity origins of the proximal hamstring tendons. No hip joint effusions. The bladder, uter us, bilateral adnexa and visualized portion of the bowels are unremarkable. No free fluid in the pelv is. No pathologically enlarged pelvic or inguinal lymphadenopathy. IMPRESSION: 1. 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 No acute osseous abnormality. Reviewed, dictated and finalized at location A. IMPRESSION: 1. 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 No acute osseous abnormality.
--- NOTE | ~2023-01-23 | CT_ITS ---
EXAMINATION: CT lumbar spine wo con DATE: 01/23/2023 11:31 INDICATION: 3 days of left low back and hip pain. TECHNIQUE: Computed tomography (CT) of the lumbar spine was performed without intravenous contrast. A utomated exposure control and iterative reconstruction technique were employed. The dose-length produ ct was 1075.85 mGy-cm. COMPARISON: None FINDINGS: 5 mm anterolisthesis L3 on L4 and L2-3 millimeters anterolisthesis L4 on L5. L4 and L5 lami nectomies. L3-S1 posterior spinal fusion with bilateral vertical michell and pedicle screw fixations. The re is also anterior fusion across the margins of the severely narrowed L5-S1 disc space. Vertebral padmini dy heights are normal. No acute fracture. Lucent lesion with internal thick and vertical trabecula in volving the majority of the L1 vertebral body consistent with a hemangioma. Severe disc height loss w ith Modic type III degenerative endplate changes at L2-L3. Moderate disc height loss with vacuum phen omena at T10-T11, T11-T12 and L1-L2. Mild disc height loss at T12-L1 and L3-L4. Additional moderate t o severe disc height loss at L4-L5. Cholelithiasis. The following disc levels are specifically discus sed: T11-T12: Disc is mildly bulging. There is severe bilateral facet joint osteoarthritis. There is moder ate right and moderate to severe left neural foraminal stenosis. There is mild central canal stenosis . T12-L1: Disc is bulging. There is moderate left and severe right facet joint osteoarthritis. There is mild bilateral neural foraminal stenosis. There is mild central canal stenosis. L1-L2: Disc is bulging. There is severe bilateral facet joint osteoarthritis. There is moderate bilat eral neural foraminal stenosis. There is moderate central canal stenosis. L2-L3: Small posterior endplate osteophytes. There is severe facet joint osteoarthritis. There is mil d to moderate right and moderate left neural foraminal stenosis. There is moderate to severe central canal stenosis. L3-L4: Disc does not appear to extend beyond the more posterior L4 endplate margin. There is severe b ilateral facet joint osteoarthritis with posterior spinal fusion extending lateral to the facet joint s. There is mild bilateral neural foraminal stenosis. There is no central canal stenosis with L4 lami nectomy and posterior decompression. L4-L5: This does not appear to extend beyond the posterior L5 endplate margin. There is cross the perfecto ateral facet joints. There is left and mild to moderate right neural foraminal stenosis. There is no central canal stenosis with L4 and L5 laminectomies and posterior decompression. L5-S1: Disc space is fused as are the bilateral facet joints. There is at least mild left-sided and m oderate right-sided neural foraminal stenosis however assessment is limited by metallic streak artifa ct from the fixation instrumentation. There is no central canal stenosis with L5 laminectomy and post erior decompression. IMPRESSION: 1. Moderate to severe lumbar and lower thoracic spondylosis. No acute acute osseous abnormality. 2. L4 and L5 laminectomies and instrumented L3-S1 posterior spinal fusion. Reviewed, dictated and finalized at location A. IMPRESSION: 1. Moderate to severe lumbar and lower thoracic spondylosis. No acute acute oss eous abnormality. 2. L4 and L5 laminectomies and instrumented L3-S1 posterior spinal fusion.
[2023-01-23 10:48] VITALS: BP 159/84; PULSE 88; RESP 20; TEMP 36.2; O2SAT 97
--- NOTE | 2023-01-23 10:52 | ED.GENADULT ---
HPI - General Adult General Chief complaint: Extremity Problem,Nontraumatic Stated complaint: left hip pain Time Seen by Provider: 01/23/23 10:51 Source: patient Mode of arrival: ambulatory Limitations: no limitations History of Present Illness HPI narrative: 77-year-old white female complains of left hip pain the past 3 days. She has been getting [facility] therapy for her knee. she complains of left lower back /hip pain worse when she is walking. Helped a little bit with Tylenol but not much. She has been using a cane for over a year. Denies any numbness or weakness. She has had low back surgery in the past. But does not usually need to take anything for back pain. Denies any recent trauma fall injury. Denies any other pain anywhere. Denies any numbness or paresthesias. She rates her pain as a 8/10. Worse with walking and movement. Denies any nausea vomiting Or Diarrhea voiding or stooling, fever sore throat rash or itching bleeding or bruising dizziness or lightheadedness. She has had a little bit of a cold recently with a cough nonproductive. She does have a rash on her back in her face dried scabs that been there for months. Her doctor total put Vaseline on but she can not reach that area on her back. She covers her face rash with makeup. denies any other complaints. Related Data Home Medications Medication Instructions Recorded Confirmed alendronate 70 mg tablet 70 mg PO WEEKLY 05/03/21 01/23/23 apixaban 2.5 mg tablet (Eliquis) 5 mg PO BID 05/03/21 01/23/23 calcium carbonate 200 mg calcium 200 mg PO DAILY 05/03/21 01/23/23 (500 mg) chewable tablet cholecalciferol (vitamin D3) 25 25 mcg PO DAILY 05/03/21 01/23/23 mcg (1,000 unit) tablet (Vitamin D3) citalopram 20 mg tablet 20 mg PO DAILY 05/03/21 01/23/23 famotidine 20 mg tablet 20 mg PO DAILY 05/03/21 01/23/23 fenofibrate 160 mg tablet 160 mg PO DAILY 05/03/21 01/23/23 loratadine 10 mg tablet 10 mg PO DAILY 05/03/21 01/23/23 montelukast 10 mg tablet 10 mg PO BID 05/03/21 01/23/23 ropinirole 0.5 mg tablet 0.5 mg PO QID 05/03/21 01/23/23 Allergies Allergy/AdvReac Type Severity Reaction Status Date / Time phenol [From Chloraseptic] Allergy Unknown Verified 01/23/23 10:57 sulfamethoxazole Allergy Unknown Verified 01/23/23 10:57 [From Bactrim] trimethoprim [From Bactrim] Allergy Unknown Verified 01/23/23 10:57 PMFSH Past Medical History Medical History Anxiety Arthritis Asthma Bronchitis Depression Factor 5 Leiden mutation, heterozygous Osteoporosis Restless leg syndrome Seasonal allergies Surgical History Surgical History DVT (deep venous thrombosis) History of appendectomy History of lumbar fusion Family History Family History Other Family history non-contributory Social History Social History Smoking status: Never smoker Second hand tobacco smoke exposure: Yes Alcohol intake: former Substance use: never Substance use type: does not use Lack of Transportation: No Lack of Food: Never True Current Housing: I Have Housing Concerned About Future Housing: No Difficulty Paying Gas/Electric Bills: No Difficulty Paying for Meds: No Currently Unemployed: No Education: Associate Degree Difficulty w/ Childcare or Family Care: No Gender identity (if verbalized by the patient): Female Spiritual care concerns: No Exam Narrative: Laterally white female she appears in no apparent distress. Head normocephalic atraumatic. Eyes conjunctiva pink sclera nonicteric. Oropharynx is clear with moist mucous membranes. Neck is supple nontender full range of motion. His nontender except for minimal left lower paralumbar tenderness. But this is very minimal negative straight leg raise perfecto
[2023-01-23 10:57] VITALS: BP 159/84; PULSE 88; RESP 20; TEMP 36.2; O2SAT 97
[2023-01-23] MEDS: traMADol HCL (*CRX) 50 MG TABLET PO (11:47)
[2023-01-23 12:26] VITALS: BP 155/86; PULSE 85; RESP 17; TEMP 36.4; O2SAT 97
[2023-01-23 12:58] VITALS: BP 155/86; PULSE 85; RESP 17; TEMP 36.4; O2SAT 97
== END 2023-01-23 13:00 | disposition home or self-care (01) ==
PROVIDERS: Emergency Provider Emergency Medicine; PCP Internal Medicine
DX: L03.90 Cellulitis, unspecified (principal); B95.62 Methicillin resistant Staphylococcus aureus infection as the cause of diseases classified elsewhere; M54.50 Low back pain, unspecified; Z79.01 Long term (current) use of anticoagulants
CPT/HCPCS: 72131; 72192; 99284; A9270

== ENCOUNTER 2023-04-15 21:20 | Emergency (ER) | payer MEDICARE, OTHER, SELFPAY ==
--- NOTE | 2023-04-15 21:27 | ED.BACK ---
HPI - Back Pain/Injury General Chief Complaint: Unspecified Stated Complaint: back pain Time Seen by Provider: 04/15/23 21:27 Source: patient and RN notes reviewed Mode of arrival: wheelchair Limitations: no limitations History of Present Illness HPI Narrative: Patient went to see her primary care physician regarding her back pain today. He she apparently received steroid injections and was told that if she did not get any relief from her pain that she should come to the emergency room so she has shown up here. She has a history of chronic back pain spinal fusion in the past. She apparently had been on pain medications from another physician but has not been able get that from her current physician. She has tramadol but she says that is not working. Pertinent past history: prior back pain and back surgery Related Data Home Medications Medication Instructions Recorded Confirmed alendronate 70 mg tablet 70 mg PO WEEKLY 05/03/21 01/23/23 apixaban 2.5 mg tablet (Eliquis) 5 mg PO BID 05/03/21 01/23/23 calcium carbonate 200 mg calcium 200 mg PO DAILY 05/03/21 01/23/23 (500 mg) chewable tablet cholecalciferol (vitamin D3) 25 25 mcg PO DAILY 05/03/21 01/23/23 mcg (1,000 unit) tablet (Vitamin D3) citalopram 20 mg tablet 20 mg PO DAILY 05/03/21 01/23/23 famotidine 20 mg tablet 20 mg PO DAILY 05/03/21 01/23/23 fenofibrate 160 mg tablet 160 mg PO DAILY 05/03/21 01/23/23 loratadine 10 mg tablet 10 mg PO DAILY 05/03/21 01/23/23 montelukast 10 mg tablet 10 mg PO BID 05/03/21 01/23/23 ropinirole 0.5 mg tablet 0.5 mg PO QID 05/03/21 01/23/23 Allergies Allergy/AdvReac Type Severity Reaction Status Date / Time phenol [From Chloraseptic] Allergy Unknown Verified 01/23/23 10:57 sulfamethoxazole Allergy Unknown Verified 01/23/23 10:57 [From Bactrim] trimethoprim [From Bactrim] Allergy Unknown Verified 01/23/23 10:57 Review of Systems Review of Systems: All systems reviewed & are unremarkable except as noted in HPI and below Genitourinary: Genitourinary: Reports nocturia ( Urgency) [facility] Past Medical History Medical History Anxiety Arthritis Asthma Bronchitis Depression Factor 5 Leiden mutation, heterozygous Osteoporosis Restless leg syndrome Seasonal allergies Surgical History Surgical History DVT (deep venous thrombosis) History of appendectomy History of lumbar fusion Family History Family History Other Family history non-contributory Social History Social History Smoking status: Never smoker Second hand tobacco smoke exposure: Yes Alcohol intake: former Substance use: never Substance use type: does not use Lack of Transportation: No Lack of Food: Never True Current Housing: I Have Housing Concerned About Future Housing: No Difficulty Paying Gas/Electric Bills: No Difficulty Paying for Meds: No Currently Unemployed: No Education: Associate Degree Difficulty w/ Childcare or Family Care: No Gender identity (if verbalized by the patient): Female Spiritual care concerns: No Exam Const: General: healthy appearing, no acute distress and alert Nutritional Appearance: obese Orientation/consciousness: patient oriented x3 Limitations: physical limitations HENMT: Head: normal to inspection Ears: external ears normal Face/Nose/Sinus: Normal external nose present Face and sinus: normal facial exam Mouth: Yes moist mucous membranes Eyes: Conjunctivae: conjunctivae normal Pupils: Equal, round and reactive pupils present EOM: EOMs intact bilaterally Neck: Neck: normal visual inspection Resp: Effort & Inspection: normal respiratory effort Auscultation: clear to auscultation bilaterally Cardio: Rate: regular rate Rhythm: regular rhythm GI: GI Palp:
[2023-04-15 21:33] VITALS: BP 148/85; PULSE 80; RESP 20; TEMP 37; O2SAT 96
[2023-04-15] MEDS: HYDROmorphone HCL INJ (*CRX) 2 MG/ML VIAL 1 MG IM (21:45)
--- NOTE | 2023-04-15 21:45 | PC.NURSE ---
daughter here with suitcase, patient wanted admitted for pain medication and management
[2023-04-15 21:55] LABS: Appearance Urine Clear (Clear); Bilirubin Urine Negative (Negative); Blood Urine Negative (Negative); Color Urine Yellow (Yellow); Glucose Urine UA Negative (Negative); Ketones Urine Trace (Negative); Leukocyte Esterase Ur Trace LEU/UL (Negative); Nitrate Urine Negative (Negative); Protein Urine Trace (Negative); pH Urine 6.5 (5.0-8.0)
--- NOTE | 2023-04-15 21:59 | PC.NURSE ---
patient unable to verify meds, forgot list at home
[2023-04-15 22:00] LABS: Add Urine Microscopic? YES; Bacteria Urine Trace /hpf; RBC Urine 0-2 /hpf (0-2); Squamous Epithelial Cell Urine Few /hpf (Few); WBC Urine 16-20 /hpf (0-3)
[2023-04-15 22:01] LABS: Mucus Urine Heavy /lpf
[2023-04-15] MEDS: CEPHALEXIN 500 MG CAPSULE PO (22:11)
[2023-04-15 22:24] VITALS: BP 123/52; PULSE 82; RESP 20; TEMP 36.6; O2SAT 96
--- NOTE | 2023-04-18 12:37 | PC.NURSE ---
FINAL URINE CULTURE RESULTS: ESCHERICHIA COLI. NO CHANGE IN TREATMENT NEEDED PER C&S AND DR ESPINOZA.
== END 2023-04-15 22:26 | disposition home or self-care (01) ==
PROVIDERS: Emergency Provider Emergency Medicine; PCP Internal Medicine
DX: N39.0 Urinary tract infection, site not specified (principal); M54.50 Low back pain, unspecified; G89.29 Other chronic pain
CPT/HCPCS: 81001; 87077; 87086; 87088; 87186; 96372; 99283; A9270; J1170

== ENCOUNTER 2023-07-07 13:46 | Outpatient (CLI) | payer MEDICARE, MEDICAID, SELFPAY ==
--- NOTE | ~2023-07-07 | XR_ITS ---
Thoracic spine: Clinical Indication: Back pain AP and lateral views were performed. COMPARISON: 03/07/2016 Mild chronic anterior wedging deformity of what is probably T8 is present, similar to prior exam. The re is diffuse degenerative disc narrowing in the thoracic spine. The intervertebral disc spaces appea r normal. Paravertebral soft tissues appear normal. Impression: Probable chronic anterior wedging deformity of what is probably T8. Degenerative spondylosis, similar to prior exam. Reviewed, dictated and finalized at location . Impression: Probable chronic anterior wedging deformity of what is probably T8. Degenerative spondylosis, similar to prior exam.
== END 2023-07-07 13:47 | disposition home or self-care (01) ==
LOC: CHSIMG 13:54
PROVIDERS: PCP Internal Medicine; Visit Provider Nurse Practitioner Family
DX: M54.6 Pain in thoracic spine (principal); M43.04 Spondylolysis, thoracic region
CPT/HCPCS: 72072

== ENCOUNTER 2024-03-16 15:17 | Outpatient (CLI) | payer MEDICARE, MEDICAID, SELFPAY ==
--- NOTE | ~2024-03-16 | CT_ITS ---
CT brain wo con Ordering provider: Armand Tate MD History: 78 years Female with . Headache, Dizziness x1 day . Comparison: December 08, 2022 Technique: CT of the head without contrast. Radiation reduction technique utilized. The DLP is 605.33 FINDINGS: BRAIN PARENCHYMA AND CSF SPACES: No midline shift, mass effect or hemorrhage. The brain parenchyma a nd CSF spaces are otherwise normal. VISUALIZED PARANASAL SINUSES: Right maxillary sinus disease. MASTOIDS: Well aerated. BONES: The bones appear intact. SOFT TISSUES: Visualized nasopharynx is normal. Superficial soft tissues are normal. IMPRESSION: No acute intracranial findings. Reviewed, dictated and finalized at location A.
[2024-03-16 16:01] LABS: Hematocrit 43.9 % (35.0-42.0); Hemoglobin 14.2 g/dL (11.7-13.8); Mean Corpuscular HGB Conc 32.3 g/dL (32-36); Mean Corpuscular Hemoglobin 30.1 pg (27.0-31.0); Mean Corpuscular Volume 93.2 fL (78.0-102.0); Mean Platelet Volume 10.6 fl (9.2-11.8); Platelet Count Result 181 K/mm3 (150-420); Red Blood Count 4.71 M/mm3 (4.20-5.40); Red Cell Distribution Width 13.6 % (11.6-14.4); White Blood Count 8.1 K/mm3 (4.8-10.8)
[2024-03-16 16:02] LABS: Appearance Urine Clear (Clear); Bilirubin Urine Negative (Negative); Blood Urine Negative (Negative); Color Urine Yellow (Yellow); Glucose Urine UA Negative (Negative); Ketones Urine Negative (Negative); Leukocyte Esterase Ur Trace LEU/UL (Negative); Nitrate Urine Positive (Negative); Protein Urine Negative (Negative); Urobilinogen Urine 0.2 mg/dL (0.2-1.0)
[2024-03-16 16:09] LABS: Add Urine Microscopic? YES; Bacteria Urine 4+ /hpf; RBC Urine None seen /hpf (0-2); Squamous Epithelial Cell Urine Moderate /hpf (Few); WBC Urine 0-3 /hpf (0-3)
[2024-03-16 16:30] LABS: Alanine Aminotransferase 32 U/L (14-59); Albumin Level 3.9 g/dL (3.4-5.0); Alkaline Phosphatase 102 U/L (46-116); Anion Gap 6 mmol/L (4-12); Aspartate Amino Transferase 25 U/L (15-37); Bilirubin,Total 0.9 mg/dL (0.00-1.00); Blood Urea Nitrogen 13 mg/dL (7-18); CRP 0.5 mg/dL (0.0-0.9); Carbon Dioxide 31 mmol/L (21-32); Chloride 103 mmol/L (98-108); Estimated Glomerular Filt Rate > 60; Glucose 95 mg/dL (70-99); Osmolality Calculated 290 mOsm/kg (285-295); Potassium 4.4 mmol/L (3.5-5.1); Sodium 140 mmol/L (136-145); Total Protein 7.4 g/dL (6.4-8.2)
== END 2024-03-16 15:18 | disposition home or self-care (01) ==
LOC: CHSIMG 15:24
PROVIDERS: PCP Internal Medicine; Visit Provider Internal Medicine
DX: S09.90XA Unspecified injury of head, initial encounter (principal); R51.9 Headache, unspecified; R42 Dizziness and giddiness; R82.90 Unspecified abnormal findings in urine
CPT/HCPCS: 36415; 70450; 80053; 81001; 85027; 86140; 87086; 87186

== ENCOUNTER 2025-06-07 12:01 | Outpatient (CLI) | payer MEDICARE, MEDICAID, SELFPAY ==
[2025-06-07 12:17] LABS: Hematocrit 45.9 % (35.0-42.0); Hemoglobin 14.9 g/dL (11.7-13.8); Mean Corpuscular HGB Conc 32.5 g/dL (32-36); Mean Corpuscular Hemoglobin 30.7 pg (27.0-31.0); Mean Corpuscular Volume 94.4 fL (78.0-102.0); Platelet Count Result 193 K/mm3 (150-420); Red Blood Count 4.86 M/mm3 (4.20-5.40); White Blood Count 7.1 K/mm3 (4.8-10.8)
--- OUTSIDE RECORDS SUMMARY | 2025-06-07 13:07 | XMS_ITS | Clinical Summary ---
Author Organization [facility] [address] Address [address] [place] [address] Care Team Providers Care Fiber Artist Name Role Phone Ubaldo Khalil MD Primary Care Provider [phone] Allergies Active Allergy Reactions Criticality Noted Date Comments Levofloxacin Medications citalopram (CeleXA) 20 mg tablet Take 20 mg by mouth daily 07/04/2019 Active fenofibrate (TRIGLIDE) 160 mg tablet TK 1 T PO D 02/19/2020 Active gabapentin (NEURONTIN) 300 mg capsule TK 3 CS PO TID 03/03/2020 Active rOPINIRole (REQUIP) 0.5 mg tablet TK 1 T PO QID 01/05/2020 Active traMADoL (ULTRAM) 50 mg tablet TK 2 TS PO Q 6 H PRN 02/21/2020 Active warfarin (COUMADIN) 5 mg tablet Take 5 mg by mouth daily 04/24/2019 Active Active Problems Problem Noted Date Diagnosed Date Closed fracture of tibial plateau 03/22/2016 Surgical History Surgery Date Site/Laterality Comments KNEE ARTHROSCOPY FOOT SURGERY ROTATOR CUFF REPAIR SHOULDER ARTHROSCOPY Medical History Medical History Date Comments Allergic rhinitis Anxiety Cataract Depression DVT (deep venous thrombosis) Sinusitis Family History Medical History Relation Name Comments Cancer Father Heart disease Mother Heart disease Sister Relation Name Status Comments Father Mother Sister Social History Tobacco Use Types Packs/Day Years Used Date Smoking Tobacco: Never Smokeless Tobacco: Never Personal Safety Answer Date Recorded Getting School Help Needed Not on file 12/08 Comments Unknown Sex and Gender Information Value Date Recorded Sex Assigned at Not on file 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 Gender Identity Not on file Sexual Orientation Not on file Obstetrics History Last Filed Vital Signs Vital Sign Reading Time Taken Comments Blood Pressure 142/65 04/02/2016 1:27 PM CDT Pulse 64 04/02/2016 1:27 PM CDT Temperature 36.7 C (98.1 F) 03/25/2020 1:58 PM CDT Respiratory Rate - - Oxygen Saturation 97% 04/02/2016 1:27 PM CDT Inhaled Oxygen Concentration - - Weight 88.5 kg (195 lb) 03/25/2020 1:58 PM CDT Height 158.8 cm (5' 2.5) 03/25/2020 1:58 PM CDT Body Mass Index 35.1 03/25/2020 1:58 PM CDT Plan of Treatment Not on file Insurance MEDICARE [facility] Address: [address] [address] [place] [address] [employer] Care Teams Fiber Artist Relationship Specialty Start Date End Date Ubaldo Khalil MD [address] [place], [place] [address] [address] PCP - General Family Medicine 03/03/20
[2025-06-07 13:30] LABS: Alanine Aminotransferase 23 U/L (6-35); Albumin Level 4.5 g/dL (3.5-5.1); Alkaline Phosphatase 106 U/L (38-126); Anion Gap 9 mmol/L (4-12); Aspartate Amino Transferase 43 U/L (14-36); Bilirubin,Total 1.9 mg/dL (0.2-1.3); Blood Urea Nitrogen 14 mg/dL (7-17); CRP < 0.5 mg/dL (<1.0); Calcium 9.7 mg/dL (8.4-10.2); Carbon Dioxide 31 mmol/L (22-30); Chloride 102 mmol/L (98-107); Estimated Glomerular Filt Rate > 60; Glucose 109 mg/dL (65-110); Magnesium 2.1 mg/dL (1.6-2.3); Osmolality Calculated 295 mOsm/kg (285-295); Potassium 5.0 mmol/L (3.4-5.0); Sodium 142 mmol/L (137-145); Total Protein 7.8 g/dL (6.3-8.2)
[2025-06-07 13:36] LABS: NT Pro B Type Natriuretic Pept 2790 pg/mL (19.9-100)
== END 2025-06-07 12:02 | disposition home or self-care (01) ==
LOC: CHSLAB 12:06
PROVIDERS: PCP Internal Medicine; Visit Provider Internal Medicine
DX: I50.9 Heart failure, unspecified (principal); R53.83 Other fatigue
CPT/HCPCS: 36415; 80053; 83735; 83880; 85027; 86140